=== PATIENT | male | born 1955 | race Two or more races ===

== ENCOUNTER 2018-06-15 15:35 | Emergency (ER) | payer OTHER ==
[~2018-06-15] VITALS: Ht 165.1 cm; Wt 94.3 kg
[2018-06-15 16:00] VITALS: BP 123/84
[2018-06-15] MEDS ORDERED: Metoclopramide 10mg/2ml Inj IVP ONE (16:30)
[2018-06-15] MEDS ORDERED: Isovue-370 150ml vial INJ PRN (16:30)
[2018-06-15 17:02] LABS: BASOPHILS % (AUTO) 1.3 % (0.0-2.0); EOSINOPHILS % (AUTO) 2.3 % (0.0-3.0); HEMATOCRIT 47.1 % (42.0-52.0); HEMOGLOBIN 16.6 G/DL (14.2-18.0); LYMPHOCYTES % (AUTO) 22.2 % (20.0-45.0); MEAN CORPUSCULAR VOLUME 87 FL (80-99); MONOCYTES % (AUTO) 9.5 % (1.0-10.0); NEUTROPHILS % (AUTO) 64.8 % (45.0-75.0); PLATELET COUNT 184 K/UL (150-450); RED BLOOD COUNT 5.39 M/UL (4.70-6.10); RED CELL DISTRIBUTION WIDTH 11.7 % (11.6-14.8); WHITE BLOOD COUNT 7.6 K/UL (4.8-10.8)
[2018-06-15 17:25] LABS: ANION GAP 9 mmol/L (5-15); BLOOD UREA NITROGEN 17 mg/dL (7-18); CALCIUM 9.5 MG/DL (8.5-10.1); CARBON DIOXIDE 24 MMOL/L (21-32); CHLORIDE 95 MMOL/L (98-107); CREATININE 1.1 MG/DL (0.55-1.30); POTASSIUM 4.4 MMOL/L (3.5-5.1); SODIUM 128 MMOL/L (136-145)
[2018-06-15 17:38] LABS: ALANINE AMINOTRANSFERASE 61 U/L (12-78); ALBUMIN 4.2 G/DL (3.4-5.0); ALBUMIN/GLOBULIN RATIO 1.2 (1.0-2.7); ALKALINE PHOSPHATASE 122 U/L (46-116); ASPARTATE AMINO TRANSFERASE 34 U/L (15-37); BILIRUBIN,TOTAL 1.3 MG/DL (0.2-1.0); CKMB 6.6 NG/ML (0.0-3.6); CREATINE KINASE 290 U/L (26-308)
[2018-06-15 17:42] LABS: BILIRUBIN,DIRECT 0.3 MG/DL (0.0-0.3)
--- NOTE | 2018-06-15 17:43 | Emergency Room Report ---
History of Present Illness General Chief Complaint: General Complaint Source: Patient Present Illness HPI 63-year-old male presents ED for evaluation. Patient presenting with hiccups. States that is been happening for the last several months. Patient states he is been given Thorazine in the ER with resolution of his hiccups. States he was given Thorazine a few days ago and states his hiccups have not resolved. States he is feeling short of breath. Denies chest pain. Denies fevers or chills. Denies leg swelling. No other aggravating relieving factors. Denies any other associated symptoms Allergies: Coded Allergies: No Known Allergies (Unverified , 06/15/18) Patient History Past Medical History: DM, HTN Past Surgical History: none Pertinent Family History: none Social History: Denies: smoking, alcohol use, drug use Immunizations: UTD Reviewed Nursing Documentation: PMH: Agreed; PSxH: Agreed Nursing Documentation-PMH Past Medical History: No History, Except For Hx Hypertension: Yes Hx Diabetes: Yes Review of Systems All Other Systems: negative except mentioned in HPI Physical Exam Vital Signs Date Time Temp Pulse Resp B/P (MAP) Pulse Ox O2 Delivery O2 Flow Rate FiO2 06/15/18 15:56 98.6 67 20 113/70 95 Room Air 98.6 Sp02 EP Interpretation: reviewed, normal General Appearance: no apparent distress, alert, GCS 15, non-toxic Head: normocephalic, atraumatic Eyes: bilateral eye normal inspection, bilateral eye PERRL ENT: hearing grossly normal, normal pharynx, no angioedema, normal voice Neck: full range of motion, supple/symm/no masses Respiratory: chest non-tender, lungs clear, normal breath sounds, speaking full sentences Cardiovascular #1: regular rate, rhythm, no edema Cardiovascular #2: 2+ carotid (R), 2+ carotid (L), 2+ radial (R), 2+ radial (L) , 2+ dorsalis pedis (R), 2+ dorsalis pedis (L) Gastrointestinal: normal bowel sounds, non tender, soft, non-distended, no guarding, no rebound Rectal: deferred Genitourinary: normal inspection, no CVA tenderness Musculoskeletal: back normal, gait/station normal, normal range of motion, non- tender Neurologic: alert, oriented x3, responsive, motor strength/tone normal, sensory intact, speech normal Psychiatric: judgement/insight normal, memory normal, mood/affect normal, no suicidal/homicidal ideation Reflexes: 3+ bicep (R), 3+ bicep (L), 3+ tricep (R), 3+ tricep (L), 3+ knee (R) , 3+ knee (L) Skin: normal color, no rash, warm/dry, well hydrated Lymphatic: no adenopathy Medical Decision Making Diagnostic Impression: Primary Impression: Hiccups ER Course Hospital Course 63-year-old male presents with 4 month history of hiccups and intermittent shortness of breath Differential diagnoses include: hiatal hernia, PE, gastritis Clinical course Patient placed on stretcher. After initial history and physical I ordered labs , EKG, CTA chest/abd/pelvis labs reviewed- all electrolytes normal, troponins negative, no leukocytosis, hemoglobin/hematocrit stable EKG - NSR, no acute ischemic changes interpreted by me CTA chest/abd/pelvis - no evidence of PE, no acute process Patient given Thorazine IM here with improvement in symptoms. Discussed findings with the patient. At this time patient safe for discharge pending close outpatient follow-up. Patient is scheduled for endoscopy with GI in July. Dr Wilson referred patient here for evaluation. Discussed findings with him and he agrees that patient be safely discharged to home I. I feel this is a highly complex case requiring extensive working including EKG/Rhythm strip, Xray/CT/US, Blood/urine lab work, repeat exams while in ED, and administration of strong opiates/narcotics for pain control, admission to hospital or close patient follow up. Diagnosis - hiccups Stable and discharged to home with Rx Thorazine. Instructed to followup with PMD/GI. Return to ED if symptoms recur or worsen Labs Test 06/15/18 16:25 White Blood Count 7.6 K/UL (4.8-10.8) Red Blood Count 5.39 M/UL (4.70-6.10) Hemoglobin 16.6 G/DL (14.2-18.0) Hematocrit 47.1 % (42.0-52.0) Mean Corpuscular Volume 87 FL (80-99) Mean Corpuscular Hemoglobin 30.9 PG (27.0-31.0) Mean Corpuscular Hemoglobin Concent 35.3 G/DL (32.0-36.0) Red Cell Distribution Width 11.7 % (11.6-14.8) Platelet Count 184 K/UL (150-450) Mean Platelet Volume 8.0 FL (6.5-10.1) Neutrophils (%) (Auto) 64.8 % (45.0-75.0) Lymphocytes (%) (Auto) 22.2 % (20.0-45.0) Monocytes (%) (Auto) 9.5 % (1.0-10.0) Eosinophils (%) (Auto) 2.3 % (0.0-3.0) Basophils (%) (Auto) 1.3 % (0.0-2.0) Sodium Level 128 MMOL/L (136-145) Potassium Level 4.4 MMOL/L (3.5-5.1) Chloride Level 95 MMOL/L (98-107) Carbon Dioxide Level 24 MMOL/L (21-32) Anion Gap 9 mmol/L (5-15) Blood Urea Nitrogen 17 mg/dL (7-18) Creatinine 1.1 MG/DL (0.55-1.30) Estimat Glomerular Filtration Rate > 60 mL/min (>60) Glucose Level 246 MG/DL (74-106) Calcium Level 9.5 MG/DL (8.5-10.1) Total Bilirubin 1.3 MG/DL (0.2-1.0) Direct Bilirubin 0.3 MG/DL (0.0-0.3) Aspartate Amino Transf (AST/SGOT) 34 U/L (15-37) Alanine Aminotransferase (ALT/SGPT) 61 U/L (12-78) Alkaline Phosphatase 122 U/L (46-116) Total Creatine Kinase 290 U/L (26-308) Creatine Kinase MB 6.6 NG/ML (0.0-3.6) Creatine Kinase MB Relative Index 2.2 Troponin I 0.000 ng/mL (0.000-0.056) Total Protein 7.6 G/DL (6.4-8.2) Albumin 4.2 G/DL (3.4-5.0) Globulin 3.4 g/dL Albumin/Globulin Ratio 1.2 (1.0-2.7) EKG Diagnostic Results Rate: normal Rhythm: NSR ST Segments: no acute changes ASA given to the pt in ED: No Rhythm Strip Diag. Results EP Interpretation: yes Rhythm: NSR, no PVC's, no ectopy CT/MRI/US Diagnostic Results CT/MRI/US Diagnostic Results : Imaging Test Ordered: CTA Chest/abd/pelvis Impression no evidence of PE. no acute process Last Vital Signs Date Time Temp Pulse Resp B/P (MAP) Pulse Ox O2 Delivery O2 Flow Rate FiO2 06/15/18 16:00 98.6 20 123/84 97 Room Air 98.6 06/15/18 15:56 67 Status: improved Disposition: HOME, SELF-CARE Condition: Stable Scripts Metoclopramide Hcl* (REGLAN*) 10 Mg Tablet 10 MG ORAL THREE TIMES A DAY for 5 Days, TAB Prov: Chema Torres MD 06/15/18 Chlorpromazine Hcl (CHLORPROMAZINE HCL) 50 Mg Tablet 50 MG PO TID for 5 Days, TAB Prov: Chema Torres MD 06/15/18 Referrals: NOT CHOSEN IPA/MD,REFERRING (PCP) Chema Torres MD Jun 15, 2018 17:42
[2018-06-15 18:00] VITALS: BP 119/83
[2018-06-15 19:12] VITALS: BP 115/66
--- NOTE | 2018-06-15 19:49 | Diagnostic Imaging Report ---
History: SOB Exam: CT CHEST With Contrast Technique more: CTDI is 28.88 mGy and DLP is 1963 mGy-cm. Technique more: One or more of the following dose reduction techniques were used: automated exposure control, adjustment of the mA and/or kV according to patient size, use of iterative reconstruction technique. Comparison: None available FINDINGS: Respiratory motion artifact limits evaluation of the distal segmental and subsegmental evaluation. Otherwise no evidence of filling defect to suggest pulmonary embolism. Thoracic aorta appears within limits. No pericardial or pleural effusion. The central airways are patent. No focal consolidation. IMPRESSION: Respiratory motion artifact limits evaluation of the distal segmental and subsegmental evaluation. Otherwise no evidence of filling defect to suggest pulmonary embolism. Exam: CT ABDOMEN + PELVIS With Contrast Technique more: CTDI is 18.38 mGy and DLP is 1963 mGy-cm. Technique more: One or more of the following dose reduction techniques were used: automated exposure control, adjustment of the mA and/or kV according to patient size, use of iterative reconstruction technique. Comparison: None available FINDINGS: The liver, adrenal glands, kidneys, spleen, pancreas, gallbladder and abdominal aorta appear within limits. No bowel dilation or free air. Normal caliber appendix without secondary signs. Fat-containing left inguinal hernia is partially imaged with portion of the bladder pulled towards the internal ring for example axial 77 and coronal 30. The bladder is nondistended. No free fluid. Multilevel spondylosis/discogenic change. IMPRESSION: No evidence of acute intra-abdominal process. Fat-containing left inguinal hernia is partially imaged with portion of the bladder pulled towards the internal ring for example axial 77 and coronal 30. The bladder is nondistended. Multilevel spondylosis/discogenic change.
[2018-06-15] MEDS ORDERED: CHLORPROMAZINE50 MG PO (20:17)
[2018-06-15] MEDS ORDERED: REGLAN10 M1 ORAL (20:17)
[2018-06-15 20:28] VITALS: BP 115/66
--- NOTE | 2018-06-16 14:19 | Cardiology Report ---
APPROVED REPORT EKG Measurement Heart [id number] Normal sinus rhythm Cannot rule out Anterior infarct, age undetermined Abnormal ECG
== END 2018-06-15 20:30 | disposition home or self-care (01) ==
LOC: EMR 16:33
DX: R06.6 Hiccough (principal); I10 Essential (primary) hypertension; E11.9 Type 2 diabetes mellitus without complications
CPT/HCPCS: 36415; 71275; 74174; 80053; 82248; 82550; 82553; 84484; 85025; 93005; 96372; 96374; 99284; J2765; J3230; Q9967